=== PATIENT | female | born 1975 | race African-American/Black ===

== ENCOUNTER 2023-02-09 10:51 | Inpatient (IN) | payer MEDICARE, BC ==
[~2023-02-09] VITALS: Ht 167.6 cm; Wt 129.3 kg
[~2023-02-09 10:51] MED LIST: ADDE10 PO; CARI-493 PO; HYDR-4061 PO; SERT-162 PO
[2023-02-09] MEDS ORDERED: HALOPERIDOL 5 MG TABLET PO PRN (12:00)
[2023-02-09 13:30] VITALS: BP 139/90
[2023-02-09 15:31] LABS: GLUCOMETER DEV NAME(LOC) POC.BV
[2023-02-09] MEDS ORDERED: OMEPRAZOLE 20 MG CAPSULE PO PRN (18:45)
[2023-02-09] MEDS ORDERED: CloNIDine HCL 0.1 MG TABLET PO PRN (18:45)
[2023-02-09] MEDS ORDERED: ACETAMINOPHEN 325 MG TABLET PO PRN (18:45)
[2023-02-09] MEDS ORDERED: LOPERAMIDE HCL 2 MG CAPSULE PO PRN (18:45)
[2023-02-09] MEDS ORDERED: MAG HYDROX/AL HYDROX/SIMETH ES 30 ML SUSPENSION UDCUP PO PRN (18:45)
[2023-02-09] MEDS ORDERED: ONDANSETRON HCL 4 MG TABLET PO PRN (18:45)
[2023-02-09] MEDS ORDERED: IBUPROFEN 600 MG TABLET PO PRN (18:45)
[2023-02-09] MEDS ORDERED: DOCUSATE SODIUM 100 MG CAPSULE PO PRN (18:45)
[2023-02-09] MEDS ORDERED: ALBUTEROL SULFATE HFA 90 MCG/PUFF 8 GM INHALER IH PRN (18:45)
[2023-02-09] MEDS ORDERED: BACITRACIN 28 GM OINTMENT TP PRN (18:45)
[2023-02-09] MEDS ORDERED: MAGNESIUM HYDROXIDE SUSPENSION 30 ML UDCUP PO PRN (18:45)
[2023-02-09] MEDS ORDERED: PETROLATUM,WHITE 28 GM JELLY TP PRN (18:45)
[2023-02-09 20:27] VITALS: BP 144/82
[2023-02-10 07:45] LABS: BASOPHILS % (AUTO) 0.7 % (0.0-2.0); EOSINOPHILS % (AUTO) 3.1 % (1.0-6.0); HEMATOCRIT 31.1 % (36-46); HEMOGLOBIN 9.8 g/dL (12.0-16.0); LYMPHOCYTES % (AUTO) 32.6 % (22.0-44.0); MEAN CORPUSCULAR HEMOGLOBIN 24.9 pg (26.0-34.0); MEAN CORPUSCULAR HGB CONC 31.5 G/dL (31.0-37.0); MEAN CORPUSCULAR VOLUME 79 fL (80-100); MONOCYTES # (AUTO) 0.5 K/uL (0.1-1.0); MONOCYTES % (AUTO) 7.4 % (2.0-9.0); NEUTROPHILS # (AUTO) 3.5 K/uL (1.8-7.7); NEUTROPHILS % (AUTO) 56.2 % (40.0-70.0); PLATELET COUNT (AUTO) 392 K/uL (150-450); RED BLOOD CELL COUNT(AUTO) 3.93 MIL/uL (4.00-5.20); RED CELL DISTRIBUTION WIDTH 18.1 % (11.5-14.5)
[2023-02-10 08:16] LABS: ALANINE AMINOTRANSFERASE 13 U/L (12-78); ALBUMIN 2.8 g/dL (3.4-5.0); ALKALINE PHOSPHATASE 78 U/L (46-116); ANION GAP 8 mmol/L (8-16); ASPARTATE AMINOTRANSFERASE 12 U/L (15-37); BILIRUBIN,TOTAL 0.2 mg/dL (0.1-1.0); CALCIUM, TOTAL 8.1 mg/dL (8.8-10.5); CARBON DIOXIDE 29 mmol/L (22-29); CHLORIDE 107 mmol/L (98-107); CHOL/HDL RATIO 2.7 (3.9-5.7); CHOLESTEROL 175 mg/dL (131-200); FREE T4 (FREE THYROXINE) 0.92 ng/dL (0.76-1.46); GLOMERULAR FILTR. RATE CALC > 60 mL/min (>60); GLUCOSE,RANDOM 113 mg/dL (70-110); HCG,QUANTITATIVE < 1 mIU/mL (0-6); HDL CHOLESTEROL 65 mg/dL (40-60); LDL CHOL (CALC.) 87 mg/dL (0-130); POTASSIUM 3.5 mmol/L (3.5-5.1); SODIUM SERUM 144 mmol/L (136-145); THYROID STIMULATING HORMONE 0.76 uIU/mL (0.36-3.74); TOTAL PROTEIN, SERUM 7.2 g/dL (6.4-8.2); TRIGLYCERIDES 117 mg/dL (15-150)
[2023-02-10 08:44] VITALS: BP 138/86
[2023-02-10] MEDS: RisperiDONE 3 MG TABLET PO SCH ×2 (09:15→16:31)
[2023-02-10] MEDS: BENZTROPINE MESYLATE 2 MG TABLET PO SCH (20:19)
[2023-02-10] MEDS: ZOLPIDEM TARTRATE 10 MG TABLET PO PRN (21:05)
[2023-02-11 01:00] VITALS: BP 113/64
[2023-02-11 08:21] VITALS: BP 121/64
[2023-02-11] MEDS: RisperiDONE 3 MG TABLET PO SCH ×2 (09:00→17:00)
[2023-02-11] MEDS: GABAPENTIN 300 MG CAPSULE PO SCH ×2 (13:33→17:11)
[2023-02-11] MEDS: ZOLPIDEM TARTRATE 10 MG TABLET PO PRN (20:28)
[2023-02-11] MEDS: BENZTROPINE MESYLATE 2 MG TABLET PO SCH (20:28)
[2023-02-12 08:24] VITALS: BP 117/55
[2023-02-12] MEDS: GABAPENTIN 300 MG CAPSULE PO SCH ×3 (08:26→17:21)
[2023-02-12] MEDS: RisperiDONE 3 MG TABLET PO SCH ×2 (09:00→17:00)
[2023-02-12 20:03] VITALS: BP 134/77
[2023-02-12] MEDS: BENZTROPINE MESYLATE 2 MG TABLET PO SCH (20:18)
[2023-02-12] MEDS: ZOLPIDEM TARTRATE 10 MG TABLET PO PRN (20:35)
[2023-02-12] MEDS: LORazepam 2 MG TABLET PO PRN (21:20)
[2023-02-13] MEDS: GABAPENTIN 300 MG CAPSULE PO SCH ×5 (08:08→21:02)
[2023-02-13] MEDS: RisperiDONE 3 MG TABLET PO SCH ×3 (09:00→17:00)
[2023-02-13 12:17] VITALS: BP 120/73
[2023-02-13] MEDS: BENZTROPINE MESYLATE 2 MG TABLET PO SCH (20:43)
[2023-02-13] MEDS: ZOLPIDEM TARTRATE 10 MG TABLET PO PRN (21:02)
[2023-02-13 21:06] VITALS: BP 115/78
[2023-02-14 08:34] VITALS: BP 118/75
[2023-02-14] MEDS: RisperiDONE 3 MG TABLET PO SCH ×2 (09:00→16:45)
[2023-02-14] MEDS: GABAPENTIN 300 MG CAPSULE PO SCH ×3 (09:45→16:45)
[2023-02-14] MEDS: OxyCODONE HCL 5 MG IR TABLET PO PRN ×2 (13:09→20:25)
[2023-02-14] MEDS ORDERED: HALOPERIDOL LACTATE 5 MG/ML VIAL IM ONE (14:00)
[2023-02-14] MEDS ORDERED: DiphenhydrAMINE HCL 50 MG/ML VIAL IM ONE (14:00)
[2023-02-14] MEDS ORDERED: LORazepam 2 MG/ML VIAL IM ONE (14:00)
[2023-02-14] MEDS: BENZTROPINE MESYLATE 2 MG TABLET PO SCH (20:09)
[2023-02-14] MEDS: ZOLPIDEM TARTRATE 10 MG TABLET PO PRN (20:09)
[2023-02-14] MEDS: LORazepam 2 MG TABLET PO PRN (20:09)
[2023-02-14 20:19] VITALS: BP 134/95
[2023-02-15] MEDS: OxyCODONE HCL 5 MG IR TABLET PO PRN ×3 (03:53→17:22)
[2023-02-15 08:23] VITALS: BP 117/72
[2023-02-15] MEDS: RisperiDONE 3 MG TABLET PO SCH (09:00)
[2023-02-15] MEDS: GABAPENTIN 300 MG CAPSULE PO SCH ×3 (10:14→17:08)
[2023-02-15 20:18] VITALS: BP 122/87
[2023-02-15] MEDS: BENZTROPINE MESYLATE 2 MG TABLET PO SCH (20:23)
[2023-02-15] MEDS: HALOPERIDOL 10 MG TABLET PO SCH (20:23)
[2023-02-16] MEDS: OxyCODONE HCL 5 MG IR TABLET PO PRN ×3 (00:27→16:36)
[2023-02-16] MEDS: GABAPENTIN 300 MG CAPSULE PO SCH ×3 (08:17→16:17)
[2023-02-16 08:33] VITALS: BP 102/68
[2023-02-16 16:36] VITALS: BP 118/67
[2023-02-16] MEDS: HALOPERIDOL 10 MG TABLET PO SCH (21:11)
[2023-02-16] MEDS: BENZTROPINE MESYLATE 2 MG TABLET PO SCH (21:12)
[2023-02-17 00:50] VITALS: BP 114/77
[2023-02-17] MEDS: OxyCODONE HCL 5 MG IR TABLET PO PRN ×3 (00:54→16:04)
[2023-02-17 08:21] VITALS: BP 102/65
[2023-02-17] MEDS: GABAPENTIN 300 MG CAPSULE PO SCH ×3 (08:21→16:04)
[2023-02-17 20:15] VITALS: BP 120/63
[2023-02-17] MEDS: BENZTROPINE MESYLATE 2 MG TABLET PO SCH (20:18)
[2023-02-17] MEDS: HALOPERIDOL 10 MG TABLET PO SCH (20:18)
[2023-02-18] MEDS: OxyCODONE HCL 5 MG IR TABLET PO PRN (02:25)
[2023-02-18] MEDS: GABAPENTIN 300 MG CAPSULE PO SCH (08:05)
[2023-02-18 08:33] VITALS: BP 129/69
[2023-02-18] MEDS ORDERED: BENZ2TAB71 PO ×2 (10:20→10:24)
[2023-02-18] MEDS ORDERED: HALO10TA21 PO ×2 (10:20→10:24)
[2023-02-18] MEDS ORDERED: GABA-1181 PO ×2 (10:20→10:24)
== END 2023-02-18 12:31 | disposition home or self-care (01) | DRG 885 ==
LOC: B3A 12:19
PROVIDERS: ADMIT Psychiatry & Neurology Psychiatry; ATTEND Psychiatry & Neurology Psychiatry
DX: F20.9 Schizophrenia, unspecified (principal); Z68.42 Body mass index [BMI] 45.0-49.9, adult; E66.9 Obesity, unspecified; Z20.822 Contact with and (suspected) exposure to COVID-19; F32.A Depression, unspecified; F41.9 Anxiety disorder, unspecified; G47.00 Insomnia, unspecified; M54.9 Dorsalgia, unspecified; K21.9 Gastro-esophageal reflux disease without esophagitis; K59.00 Constipation, unspecified; Z98.84 Bariatric surgery status; Z59.00 Homelessness unspecified; Z79.899 Other long term (current) drug therapy
CPT/HCPCS: 80053; 80061; 84436; 84439; 84443; 84702; 85025; 86592; G0480